=== PATIENT | female | born 1950 | race Caucasian/White ===

== ENCOUNTER → 2018-06-02 | Outpatient (CLI) | payer MEDICARE, OTHER ==
[~2018-06-02] MED LIST: BUPROPION; CLONAZEPAM 1 MG1 M1 PO; CLOPIDOGREL; DICLOFENAC SODI75 M1 PO; GABAPENTIN100 MG PO; LIPITOR40 MG PO; LOPRESSOR 50 MG50 M1 PO; NEURONTIN 300300 M1 PO; OXYCONTIN10 M1 PO; OXYCONTIN20 M1 PO; PERCOCET 5-3251 EACH PO; SIMVASTATIN80 MG PO; SYNTHROID; ULTRAM 50MG TAB50 MG PO; VALIUM5 MG PO; [UNRECOGNIZED DRUG - OTHER]
== END ==
LOC: M.RAD 05-17 09:30
DX: Z12.31 Encounter for screening mammogram for malignant neoplasm of breast (principal)